=== PATIENT | male | born 1940 | race American Indian/Alaskan Native ===

== ENCOUNTER 2016-12-13 06:22 | Day surgery (SDC) | payer MEDICARE ==
[2016-12-13 06:51] VITALS: BMI 25.2
[2016-12-13] MEDS ORDERED: Lactated Ringer's 1,000 ML IV ONE (08:43)
[2016-12-13] MEDS ORDERED: Midazolam 2 MG/2 ML VIAL ONE (08:43)
[2016-12-13] MEDS ORDERED: Propofol 10 mg/ml Inj (20 ML) ONE ×2 (08:43→09:11)
[2016-12-13 10:37] VITALS: BP 116/77; PULSE 90; RESP 14; TEMP 97; O2SAT 99
== END 2016-12-13 10:25 | disposition home or self-care (01) ==
LOC: C.ENDO 06:22
PROVIDERS: ATTEND Internal Medicine Gastroenterology
DX: K62.1 Rectal polyp (principal); K64.0 First degree hemorrhoids
CPT/HCPCS: 45380; 88305; J2250; J2704; J7120